=== PATIENT | male | born 1950 | race Caucasian/White ===

== ENCOUNTER 2018-05-15 10:38 | Outpatient (CLI) | payer MEDICARE, BC ==
[2018-05-15 11:19] LABS: Estimated GFR-MDRD - POC Greater than 90
--- NOTE | 2018-05-15 13:31 | CT ---
CT ABDOMEN AND PELVIS WITH ORAL AND IV CONTRAST: HISTORY: Lower abdominal pain. COMPARISON: There are no previous exams for comparison. IV CONTRAST: Isovue-370 100 mL. FINDINGS: There are minimal dependent changes in the lung bases. The patient is post cholecystectomy. There i s soft tissue density at the anterior aspect of the subcutaneous fat, just below the skin surface of the superior abdominal and anterior abdominal wall. No abnormally loculated fluid collection is seen to suggest abscess formation. No abdominal wall hernia is seen. There is a 15 mm low density lesion in the left lobe of the liver, which does not meet all criteria f or a simple cyst. The spleen, pancreas, adrenal glands, and left kidney are normal. There is a 3.3 cm exophytic cyst arising from the right kidney. No free air, free fluid, or lymphadenopathy is noted in the abdomen or pelvis. The small bowel loops are not abnormally dilated. A normal appearing appendix is seen. There is colonic diverticulosis w ithout evidence of diverticulitis. There is mild enlargement of the prostate gland. A small bilater al fat-containing inguinal hernia is present. There are vascular calcifications without evidence of aneurysmal dilatation of the abdominal aorta. There are degenerative changes of the spine. IMPRESSION: 1. Anterior abdominal wall changes should be clinically correlated for cellulitis. 2. Right renal cyst. 3. Indeterminate 1.5 cm left liver lobe lesion. Evaluation with ultrasound would be helpful. 4. Colonic diverticulosis. 5. Mild prostatic enlargement. POS: C
== END 2018-05-15 10:39 | disposition home or self-care (01) ==
LOC: SCSCT 10:38
PROVIDERS: ATTEND Internal Medicine Gastroenterology
DX: R10.32 Left lower quadrant pain (principal); R15.1 Fecal smearing; K21.9 Gastro-esophageal reflux disease without esophagitis; N28.1 Cyst of kidney, acquired; K76.9 Liver disease, unspecified; K57.30 Diverticulosis of large intestine without perforation or abscess without bleeding; N40.0 Benign prostatic hyperplasia without lower urinary tract symptoms
CPT/HCPCS: 74178; 82565

== ENCOUNTER 2018-06-17 15:37 | Emergency (ER) | payer MEDICARE, BC ==
[2018-06-17 16:16] LABS: #Basophils 0.1 thou/uL (0.0-0.2); #Eosinphils 0.1 thou/uL (0.0-0.7); #Lymphocytes 2.1 thou/uL (1.20-3.40); #Monocytes 0.7 thou/uL (0.11-0.59); #Neutrophils 5.4 thou/uL (1.40-6.50); %Basophils 0.7 % (0.0-1.0); %Eosinophils 1.2 % (0.0-10.0); %Lymphocytes 24.5 % (21.0-51.0); %Monocytes 8.8 % (0.0-10.0); %Neutrophils 64.8 % (42.0-75.0); Hemoglobin 13.6 g/dL (14.0-18.0); Mean Corpuscular HGB CONC 32.6 g/dL (32.0-36.0); Mean Corpuscular Hemoglobin 30.2 pg (27.0-31.0); Mean Corpuscular Volume 92.5 fL (78.0-98.0); Mean Platelet Volume 9.6 fL (7.4-10.4); Platelet Count 156 thou/uL (130-400); RBC Distribution Width 12.7 % (11.5-14.5); White Blood Cell (WBC) Count 8.4 thou/uL (4.8-10.8)
--- NOTE | 2018-06-17 16:21 | RAD ---
AP view chest HISTORY: Left arm pain AP view chest obtained on 06/17/2018. Comparison made to a previous exam from 08/28/2014. Sternotomy wires seen. The lungs are well aerated. No evidence of active intrathoracic disease seen. No evidence of effusions, pneumonia or pneumothorax seen. IMPRESSION: Unremarkable AP view chest.
[2018-06-17 16:40] LABS: ALT (SGPT) 36 U/L (8-55); AST (SGOT) 26 U/L (5-34); Albumin 4.1 g/dL (3.4-4.8); Alkaline Phosphatase 159 U/L (40-150); Anion Gap 11 mmol/L (10-20); BUN (Urea Nitrogen) 13 mg/dL (8.4-25.7); CK (CPK) 133 U/L (30-200); Calc. Creatinine Clearance 0 mL/min (70-130); Calcium 9.5 mg/dL (7.8-10.44); Carbon Dioxide 30 mmol/L (23-31); Chloride 104 mmol/L (98-107); Estimated GFR-MDRD 77; Globulin 2.4 g/dL (2.4-3.5); Glucose 110 mg/dL (80-115); Lipase 20 U/L (8-78); Potassium 4.5 mmol/L (3.5-5.1); Protein, Total 6.5 g/dL (5.8-8.1); Sodium 140 mmol/L (136-145)
== END 2018-06-17 21:43 | disposition home or self-care (01) ==
LOC: ERS 15:37
DX: M25.522 Pain in left elbow (principal); E11.9 Type 2 diabetes mellitus without complications
CPT/HCPCS: 36415; 71045; 80053; 82550; 83690; 84484; 85025; 93005

== ENCOUNTER 2018-06-20 08:45 | Outpatient (CLI) | payer MEDICARE, BC ==
--- NOTE | 2018-06-20 10:36 | RAD ---
SEVEN VIEWS CERVICAL SPINE: HISTORY: Left arm numbness. FINDINGS: AP, lateral, open mouth odontoid, swimmer's, submental vertex, as well as flexion and extension views cervical spine obtained. Images demonstrate ACDF with fusion of the C3, C4, C5, C6, and C7 vertebral levels. Plates and screw s are in good position. No evidence of hardware displacement seen. No evidence of lucency seen to s uggest incomplete fusion. No evidence of martine- or retrolisthesis seen on flexion or extension views. IMPRESSION: No significant evidence of bony abnormality seen in a patient post fusion. Multilevel mid and lower cervical level posterior osteophytes seen likely representing possible cervical spine canal stenosis. POS: C
== END 2018-06-20 08:46 | disposition home or self-care (01) ==
LOC: TBSIIMAG 08:45
PROVIDERS: ATTEND Neurological Surgery
DX: M54.12 Radiculopathy, cervical region (principal); M25.78 Osteophyte, vertebrae
CPT/HCPCS: 72050

== ENCOUNTER 2018-07-25 08:45 | Outpatient (CLI) | payer MEDICARE, BC ==
--- NOTE | 2018-07-25 11:52 | ULT ---
HEPATIC ULTRASOUND WITH VASCULAR DUPLEX AND COLOR AND SPECTRAL DOPPLER IMAGING: Date: 07/25/18 HISTORY: Follow-up liver cysts from CT. FINDINGS: The liver is suboptimally evaluated because of body habitus, particularly the left lobe. Minimal hete rogeneous liver echogenicity. The abnormality of concern in the left lobe on the prior CT scan is not adequately seen on this study to comment in regards to the presence or absence of an abnormality. St atus post cholecystectomy. Common bile duct 0.7 cm. Visualized pancreas and spleen are unremarkable. Vascular duplex with color and spectral Doppler imaging demonstrates antegrade hepatic and portal darryn ous flow. IMPRESSION: Small low attenuation focus in the left lobe of the liver on prior CT scan is not adequately seen on today's ultrasound because of body habitus. No intrahepatic ductal dilatation. Antegrade hepatic and portal venous flow. Consider short-term follow-up CT scan in 6 months depending upon clinical concern. POS: OFF
== END 2018-07-25 08:46 | disposition home or self-care (01) ==
LOC: SCSULT 08:45
PROVIDERS: ATTEND Internal Medicine Gastroenterology
DX: K76.9 Liver disease, unspecified (principal); K58.9 Irritable bowel syndrome, unspecified; R94.5 Abnormal results of liver function studies
CPT/HCPCS: 76705

== ENCOUNTER 2018-11-04 12:43 | Outpatient (CLI) | payer MEDICARE, BC ==
[2018-11-04 14:26] LABS: #Basophils 0.1 thou/uL (0.0-0.2); #Eosinphils 0.1 thou/uL (0.0-0.7); #Monocytes 0.6 thou/uL (0.11-0.59); #Neutrophils 3.9 thou/uL (1.40-6.50); %Basophils 0.8 % (0.0-1.0); %Eosinophils 1.8 % (0.0-10.0); %Lymphocytes 29.7 % (21.0-51.0); %Monocytes 8.5 % (0.0-10.0); %Neutrophils 59.3 % (42.0-75.0); Hemoglobin 13.7 g/dL (14.0-18.0); Mean Corpuscular HGB CONC 33.4 g/dL (32.0-36.0); Mean Corpuscular Hemoglobin 30.7 pg (27.0-31.0); Mean Corpuscular Volume 91.9 fL (78.0-98.0); Mean Platelet Volume 9.8 fL (7.4-10.4); Platelet Count 128 thou/uL (130-400); RBC Distribution Width 12.8 % (11.5-14.5); Red Blood Cell (RBC) Count 4.45 mill/uL (4.70-6.10); White Blood Cell (WBC) Count 6.6 thou/uL (4.8-10.8)
[2018-11-04 14:51] LABS: ALT (SGPT) 32 U/L (8-55); AST (SGOT) 25 U/L (5-34); Albumin 4.1 g/dL (3.4-4.8); Alkaline Phosphatase 127 U/L (40-150); Anion Gap 7 mmol/L (10-20); BUN (Urea Nitrogen) 12 mg/dL (8.4-25.7); Bilirubin, Total 0.9 mg/dL (0.2-1.2); Calc. Creatinine Clearance 0 mL/min (70-130); Calcium 9.3 mg/dL (7.8-10.44); Carbon Dioxide 30 mmol/L (23-31); Chloride 103 mmol/L (98-107); Estimated GFR-MDRD 78; Globulin 2.4 g/dL (2.4-3.5); Glucose 202 mg/dL (80-115); Potassium 4.6 mmol/L (3.5-5.1); Protein, Total 6.5 g/dL (5.8-8.1); Sodium 135 mmol/L (136-145)
== END 2018-11-04 12:44 | disposition home or self-care (01) ==
LOC: LABBT 12:43
PROVIDERS: ATTEND Internal Medicine Cardiovascular Disease
DX: Z01.812 Encounter for preprocedural laboratory examination (principal); I25.10 Atherosclerotic heart disease of native coronary artery without angina pectoris
CPT/HCPCS: 80053; 85025

== ENCOUNTER → 2018-11-07 | Day surgery (SDC) | payer MEDICARE, BC ==
[2018-11-04 13:29] VITALS: BMI 33.9
[~2018-11-07] MED LIST: Fentanyl 100 MCG/2 ML VIAL ONE; Iopamidol 370 76% 100 ML VIAL ONE; Lidocaine 1% (PF) 30 ML VIAL ONE; Midazolam HCl 2 mg/2 ml Vial ONE
== END ==
LOC: CCL 05:57
PROVIDERS: ATTEND Internal Medicine Cardiovascular Disease
PROC: 4A023N7 Measurement of Cardiac Sampling and Pressure, Left Heart, Percutaneous Approach (ICD-10-PCS; principal; 2018-11-07)
DX: I25.10 Atherosclerotic heart disease of native coronary artery without angina pectoris (principal); E78.00 Pure hypercholesterolemia, unspecified; I10 Essential (primary) hypertension; E11.9 Type 2 diabetes mellitus without complications; K21.9 Gastro-esophageal reflux disease without esophagitis; F17.290 Nicotine dependence, other tobacco product, uncomplicated; Z79.82 Long term (current) use of aspirin; Z79.84 Long term (current) use of oral hypoglycemic drugs; Z79.899 Other long term (current) drug therapy; Z95.1 Presence of aortocoronary bypass graft; Z95.5 Presence of coronary angioplasty implant and graft
CPT/HCPCS: 36416; 76942; 93459; 99152; 99153; C1769; J1644; J2001; J2250; J3010; Q9967

== ENCOUNTER 2019-06-12 10:30 | Outpatient (CLI) | payer MEDICARE, BC | END 2019-06-12 10:31 | disposition home or self-care (01) | LOC: CTENTCT 10:30 | PROVIDERS: ATTEND Otolaryngology Plastic Surgery within the Head & Neck | DX: J32.9 Chronic sinusitis, unspecified (principal) | CPT/HCPCS: 70486 ==